=== PATIENT | female | born 1965 | race African-American/Black ===

== ENCOUNTER 2016-12-26 17:29 | Emergency (ER) | payer OTHER ==
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
--- NOTE | ~2016-12-26 | EKG ---
PATIENT: MATA NOVA UNIT #: [id number] Ventricular Rate: 71 BPM Atrial Rate: 71 BPM P-R Interval: 136 ms QRS Duration: 80 ms Q-T Interval: 408 ms QTC Calculation(Bezet): 443 ms P Davenport: 64 degrees Calculated R Davenport: -6 degrees Calculated T Davenport: 12 degrees Diagnosis Line: Normal sinus rhythm Diagnosis Line: Possible Left atrial enlargement Diagnosis Line: Borderline ECG Diagnosis Line: When compared with ECG of 11-JUL-2011 21:49, Diagnosis Line: No significant change was found Diagnosis Line: Confirmed by LEISA OTT MD ([id number]) on Diagnosis Line: 12/28/2016 8:03:55 AM INTERPRETING MD: NAMRATA MCGREGOR
[~2016-12-26 17:29] MED LIST: FLEXERIL10 MG PO; VICODIN 5/1 TAB 5/50 PO
== END 2016-12-26 19:41 | disposition home or self-care (01) ==
LOC: SED 17:29
DX: S29.9XXA Unspecified injury of thorax, initial encounter (principal); V49.49XA Driver injured in collision with other motor vehicles in traffic accident, initial encounter
CPT/HCPCS: 71010; 71120; 93005; 99284